=== PATIENT | female | born 1965 | race Caucasian/White ===

== ENCOUNTER 2017-06-26 07:30 | Outpatient (CLI) | payer OTHER | END 2017-06-26 07:33 | disposition home or self-care (01) | LOC: SONOGRAMA 07:30 → MAMO-SONO 07:45 | DX: R10.10 Upper abdominal pain, unspecified (principal); R10.13 Epigastric pain; D49.3 Neoplasm of unspecified behavior of breast; Z12.31 Encounter for screening mammogram for malignant neoplasm of breast ==

== ENCOUNTER 2017-06-26 09:19 | Outpatient (CLI) | payer OTHER | END 2017-06-26 10:00 | disposition home or self-care (01) | LOC: NUCLEAR 09:19 | DX: M85.88 Other specified disorders of bone density and structure, other site (principal) ==

== ENCOUNTER 2017-08-08 08:20 | Outpatient (CLI) | payer OTHER | END 2017-08-08 08:48 | disposition home or self-care (01) | LOC: MAMO-SONO 08:20 | DX: R92.8 Other abnormal and inconclusive findings on diagnostic imaging of breast (principal); E04.8 Other specified nontoxic goiter; E28.2 Polycystic ovarian syndrome ==

== ENCOUNTER 2017-10-15 10:46 | Outpatient (CLI) | payer OTHER | END 2017-10-15 11:00 | disposition home or self-care (01) | LOC: SONOGRAMA 10:46 | DX: E04.2 Nontoxic multinodular goiter (principal) ==

== ENCOUNTER 2019-09-11 10:28 | Outpatient (CLI) | payer OTHER | END 2019-09-11 11:00 | disposition home or self-care (01) | LOC: MAMO-SONO 10:28 | PROVIDERS: ATTEND Surgery | DX: Z12.31 Encounter for screening mammogram for malignant neoplasm of breast (principal); D49.3 Neoplasm of unspecified behavior of breast; N83.209 Unspecified ovarian cyst, unspecified side; C73 Malignant neoplasm of thyroid gland; R22.1 Localized swelling, mass and lump, neck ==

== ENCOUNTER 2019-10-29 14:07 | Outpatient (CLI) | payer OTHER | END 2019-10-29 14:09 | disposition home or self-care (01) | LOC: NUCLEAR 14:07 | PROVIDERS: ATTEND Obstetrics & Gynecology Obstetrics | DX: M81.0 Age-related osteoporosis without current pathological fracture (principal) ==

== ENCOUNTER 2019-12-25 07:49 | Outpatient (CLI) | payer OTHER | END 2019-12-25 07:53 | disposition home or self-care (01) | LOC: SONOGRAMA 07:49 | PROVIDERS: ATTEND Obstetrics & Gynecology Obstetrics | DX: K76.0 Fatty (change of) liver, not elsewhere classified (principal); R10.13 Epigastric pain ==

== ENCOUNTER 2021-03-03 07:50 | Outpatient (CLI) | payer OTHER | END 2021-03-03 07:59 | disposition home or self-care (01) | LOC: SONOGRAMA 07:50 | PROVIDERS: ATTEND Surgery | DX: C73 Malignant neoplasm of thyroid gland (principal); K11.23 Chronic sialoadenitis ==

== ENCOUNTER 2021-10-04 11:07 | Outpatient (CLI) | payer OTHER | END 2021-10-04 11:15 | disposition home or self-care (01) | LOC: MAMO-SONO 11:07 | PROVIDERS: ATTEND Obstetrics & Gynecology | DX: Z12.31 Encounter for screening mammogram for malignant neoplasm of breast (principal); N60.11 Diffuse cystic mastopathy of right breast; N60.12 Diffuse cystic mastopathy of left breast ==

== ENCOUNTER 2022-03-30 08:51 | Outpatient (CLI) | payer OTHER | END 2022-03-30 08:55 | disposition home or self-care (01) | LOC: SONOGRAMA 08:51 | DX: C73 Malignant neoplasm of thyroid gland (principal); E89.0 Postprocedural hypothyroidism; E11.69 Type 2 diabetes mellitus with other specified complication; Z68.41 Body mass index [BMI] 40.0-44.9, adult; E66.01 Morbid (severe) obesity due to excess calories; E55.9 Vitamin D deficiency, unspecified; E56.8 Deficiency of other vitamins; E78.2 Mixed hyperlipidemia ==

== ENCOUNTER 2023-06-04 10:40 | Outpatient (CLI) | payer OTHER | END 2023-06-04 10:53 | disposition home or self-care (01) | LOC: MAMO-SONO 10:40 | DX: N60.11 Diffuse cystic mastopathy of right breast (principal); N60.12 Diffuse cystic mastopathy of left breast; Z12.31 Encounter for screening mammogram for malignant neoplasm of breast; N18.9 Chronic kidney disease, unspecified; H04.553 Acquired stenosis of bilateral nasolacrimal duct ==

== ENCOUNTER 2023-09-10 08:01 | Outpatient (CLI) | payer OTHER | END 2023-09-10 08:10 | disposition home or self-care (01) | LOC: TOM 08:01 | DX: N28.1 Cyst of kidney, acquired (principal) ==